=== PATIENT | female | born 1940 | race Caucasian/White ===

== ENCOUNTER 2019-05-26 08:05 | Day surgery (SDC) | payer MEDICARE, OTHER ==
[~2019-05-26] VITALS: Ht 177.8 cm; Wt 84.3 kg
[~2019-05-26 08:05] MED LIST: ACYC400 PO; ACYC800 PO; ALBU90OI INH; ALPR.5 PO; ALPR1 PO; ASCO500 PO; ASPI325 PO; ATOR10 PO; Acyclovir800 MG PO; Aspir-Trin325 MG PO; BUSP5 PO; CHOL10002 PO; CVS DISPOSABLE399 ML PR; Cleocin HCl300 MG PO; DIPH50; DULO30; DULO60 PO; ESTR2 PO; ESTRADIOL PO; FERR325 PO; GABA300; Gas Relief80 MG PO; HYDACE10B PO; Laxative5 M1 PO; MIRT15; MORP30ER PO; MORP60ER PO; Milk Of Ma400 MG/5 M; NAPR500 PO; Norco 10-325 T1 EACH PO; OMEP20ER PO; OXECTA5 MG; OXYC30ER PO; Oxycontin20 MG PO; PARO20 PO; POLY17UD PO; PRAM.125 PO; PROAIR RESPICL90 MCG INH; Prilosec Otc20 MG PO; RANI150; RANI150 PO; STOOL SOFTENER; STOOL SOFTENER100 MG PO; TRAZ50 PO; VITAMIN D32000 UNI1 PO; Vitamin D400 UNI1 PO; XANAX PO; [UNRECOGNIZED DRUG - OTHER]; [UNRECOGNIZED DRUG - OTHER] PO
--- NOTE | 2019-05-26 09:33 | NUR ---
05/26/19 0933 Patsy Brunson 3 IV ATTEMPTS BY [facility], 1ST IN R HAND INFILTRATED WHEN PT FLENCHED, 2ND IN R FA INFILTRATED WHEN PT FLENCHED, 3RD IV ATTEMPT IN R AC WAS SUCCESSFUL
== END 2019-05-26 11:25 | disposition home or self-care (01) ==
LOC: ORSCSDS 08:05
PROVIDERS: Surgery
PROC: 0DBL8ZX Excision of Transverse Colon, Via Natural or Artificial Opening Endoscopic, Diagnostic (ICD-10-PCS; principal; 2019-05-26 09:45)
DX: Z12.11 Encounter for screening for malignant neoplasm of colon (principal); D12.3 Benign neoplasm of transverse colon; K21.9 Gastro-esophageal reflux disease without esophagitis; F41.8 Other specified anxiety disorders; F32.9 Major depressive disorder, single episode, unspecified; E78.5 Hyperlipidemia, unspecified; J44.9 Chronic obstructive pulmonary disease, unspecified; Z87.891 Personal history of nicotine dependence; Z79.82 Long term (current) use of aspirin; Z79.899 Other long term (current) drug therapy
CPT/HCPCS: 88305; J2704; J7120

== ENCOUNTER 2020-12-11 14:56 | Emergency (ER) | payer MEDICARE, OTHER ==
[~2020-12-11] VITALS: Ht 177.8 cm; Wt 90.7 kg
[~2020-12-11 14:56] MED LIST changes: -ATOR10 PO; -Norco 10-325 T1 EACH PO; -Prilosec Otc20 MG PO
[2020-12-11 15:39] LABS: Hematocrit 37.3 % (33.0-51.0); Hemoglobin 11.9 g/dL (11.5-16.0); Mean Corpuscular HGB 30.7 pg (26.0-34.0); Mean Corpuscular HGB Conc 31.9 g/dL (31.5-36.5); Mean Corpuscular Volume 96 fL (80-100); Mean Platelet Volume 8.6 fL (9.1-12.4); Platelet Count 162 K/mm3 (150-400); RDW Coefficient Variation 13.8 % (11.7-14.2); Red Blood Cell Count 3.87 M/mm3 (3.80-5.20); White Blood Cell Count 23.89 K/mm3 (4.00-11.30)
[2020-12-11 16:01] LABS: BASOPHILS ABSOLUTE MAN 0.23 K/mm3 (0.00-0.23); BASOPHILS PERCENT MAN 1 % (0-2); EOSINOPHILS ABSOLUTE MAN 0.23 K/mm3 (0.00-0.68); EOSINOPHILS PERCENT MAN 1 % (0-6); LYMPHOCYTES ABSOLUTE MAN 18.15 K/mm3 (0.84-5.20); LYMPHOCYTES PERCENT MAN 76 % (21-46); MONOCYTES ABSOLUTE MAN 1.43 K/mm3 (0.16-1.47); MONOCYTES PERCENT MAN 6 % (4-13); NEUTROPHILS ABSOLUTE MAN 3.82 K/mm3 (1.96-9.15); SEG NEUTROPHILS PERCENT MAN 16 % (41-73); TOTAL CELLS COUNTED 100
[2020-12-11 16:08] LABS: Acetaminophen, Random 20.2 ug/mL (10.0-30.0); Ethanol (Alcohol), Blood, Med <3 mg/dL; Salicylate <1.7 mg/dL (2.8-20.0); Troponin I <0.015 ng/mL (0.000-0.040)
[2020-12-11 16:09] LABS: Alanine Aminotransfer (ALT/SGP 26 U/L (12-78); Albumin, Blood 3.8 g/dL (3.4-5.0); Albumin/Globulin Ratio 1.2 (0.8-1.8); Alk Phos 99 U/L (50-136); Anion Gap 4 mmol/L (6-16); Aspartate Aminotrans (AST/SGOT 18 U/L (12-37); Bilirubin, Total 0.4 mg/dL (0.1-1.0); Blood Urea Nitrogen 15 mg/dL (8-24); Bun/Creatinine Ratio 13.2 (12.0-20.0); CO2, Blood 28 mmol/L (21-32); Chloride, Blood 106 mmol/L (98-108); Creatinine, Blood 1.14 mg/dL (0.40-1.00); Globulin, Blood 3.3 g/dL (2.2-4.0); Glomerular Filtration Rate 49 (60-); Glucose, Blood 112 mg/dL (70-99); Potassium, Blood 4.9 mmol/L (3.5-5.5); Sodium, Blood 138 mmol/L (136-145); Total Protein, Blood 7.1 g/dL (6.4-8.2)
[2020-12-11 16:54] LABS: Source, Urine Voided
[2020-12-11 16:57] LABS: Appearance, Urine Clear (Clear); Bilirubin, Urine Neg (Neg); Blood, Urine 1+ (Neg); Color, Urine Yellow (P-Yellow); Glucose Qualitative, Urine Neg (Neg); Ketones, Urine 1+ (Neg); Leukocyte Esterase, Urine 3+ (Neg); Nitrite, Urine Pos (Neg); Protein, Urine 1+ (Neg); Specific Gravity, Urine 1.025 (1.003-1.022); Urobilinogen, Urine NORM (Normal)
[2020-12-11 17:14] LABS: U Amphetamine Screen Not Detected; U Barbituate Screen Not Detected; U Benzodiazapine Screen DETECTED; U Buprenorphine Screen Not Detected; U Cannabinoids Screen Not Detected; U Cocaine Screen Not Detected; U Methadone Screen Not Detected; U Methamphetamine Screen Not Detected; U Opiates Screen DETECTED; U Oxycodone Screen DETECTED; U Phencyclidine Screen Not Detected; U Propoxyphene Screen Not Detected
[2020-12-11 17:19] LABS: White Blood Cells, Urine 25-50 /hpf (0-5)
[2020-12-11 17:20] LABS: Bacteria Many /hpf; Red Blood Cells, Urine 0-2 /hpf (0-2); Squamous Epithelial Cells Few /hpf (Few)
[2020-12-11] MEDS ORDERED: Ventolin/Prove6.7 GM INH (17:32)
[2020-12-11] MEDS ORDERED: Prilosec Otc20 MG PO (17:33)
[2020-12-11] MEDS ORDERED: ATOR10 PO (17:33)
[2020-12-11] MEDS ORDERED: Norco 10-325 T1 EACH PO (17:33)
[2020-12-11] MEDS ORDERED: ALPR1 PO (18:56)
== END 2020-12-11 22:58 | disposition short-term general hospital (02) ==
LOC: ER 14:56
PROVIDERS: Emergency Medicine
DX: G93.89 Other specified disorders of brain (principal); N39.0 Urinary tract infection, site not specified; Z79.899 Other long term (current) drug therapy
CPT/HCPCS: 36415; 70450; 71045; 72125; 80053; 81001; 83605; 83690; 84484; 85025; 87040; 93005; 93010; 96365; 99285-25; G0480; J0456; J0696; J7030; J7050

== ENCOUNTER → 2023-01-20 | Outpatient (CLI) | payer MEDICARE, OTHER ==
[~2023-01-20] MED LIST changes: +ATOR10 PO; +HYDR1TAB94 PO; +IBUP600 PO; +MIRALAX17 GM PO; +Norco 10-325 T1 EACH PO; +Prilosec Otc20 MG PO; +Ventolin/Prove6.7 GM INH
== END | disposition home or self-care (01) ==
LOC: LAB SHORT 14:50 → LAB 14:50
DX: L08.9 Local infection of the skin and subcutaneous tissue, unspecified (principal)
CPT/HCPCS: 87070; 87077; 87186; 87205

== ENCOUNTER 2023-01-22 05:39 | Emergency (ER) | payer MEDICARE, OTHER ==
[~2023-01-22] VITALS: Ht 167.6 cm; Wt 81.7 kg
[~2023-01-22 05:39] MED LIST changes: -HYDR1TAB94 PO; -IBUP600 PO; -MIRALAX17 GM PO
[2023-01-22 06:50] LABS: BASOPHILS ABSOLUTE AUTO 0.07 K/mm3 (0.00-0.23); BASOPHILS PERCENT AUTO 1 % (0-2); EOSINOPHILS ABSOLUTE AUTO 0.21 K/mm3 (0.00-0.68); EOSINOPHILS PERCENT AUTO 3 % (0-6); Hemoglobin 10.9 g/dL (11.5-16.0); IMMATURE GRAN ABSOLUTE AUTO 0.03 K/mm3 (0.00-0.10); IMMATURE GRAN PERCENT AUTO 0 % (0-1); LYMPHOCYTES ABSOLUTE AUTO 3.63 K/mm3 (0.84-5.20); LYMPHOCYTES PERCENT AUTO 43 % (21-46); MONOCYTES ABSOLUTE AUTO 0.47 K/mm3 (0.16-1.47); MONOCYTES PERCENT AUTO 6 % (4-13); Mean Corpuscular HGB 30.4 pg (26.0-34.0); Mean Corpuscular Volume 92 fL (80-100); Mean Platelet Volume 9.7 fL (9.1-12.4); NEUTROPHILS ABSOLUTE AUTO 4.08 K/mm3 (1.96-9.15); NEUTROPHILS PERCENT AUTO 48 % (41-73); Platelet Count 223 K/mm3 (150-400); RDW Coefficient Variation 13.6 % (11.7-14.2); Red Blood Cell Count 3.59 M/mm3 (3.80-5.20); White Blood Cell Count 8.49 K/mm3 (4.00-11.30)
[2023-01-22 07:06] LABS: Albumin, Blood 3.4 g/dL (3.4-5.0); Albumin/Globulin Ratio 1.2 (0.8-1.8); Bilirubin, Total 0.3 mg/dL (0.1-1.0); Bun/Creatinine Ratio 26.7 (12.0-20.0); Calcium, Blood 9.3 mg/dL (8.5-10.1); Creatinine, Blood 0.98 mg/dL (0.40-1.00); Globulin, Blood 2.9 g/dL (2.2-4.0); Potassium, Blood 4.7 mmol/L (3.5-5.5); Total Protein, Blood 6.3 g/dL (6.4-8.2)
[2023-01-22 07:31] LABS: Source, Urine Clean Catch
[2023-01-22 07:42] LABS: Appearance, Urine Clear (Clear); Bilirubin, Urine Neg (Neg); Blood, Urine 1+ (Neg); Color, Urine Yellow (P-Yellow); Glucose Qualitative, Urine Neg (Neg); Ketones, Urine Neg (Neg); Leukocyte Esterase, Urine 2+ (Neg); Nitrite, Urine Neg (Neg); Protein, Urine Neg (Neg); Specific Gravity, Urine 1.015 (1.003-1.022); Urobilinogen, Urine NORM (Normal)
[2023-01-22 07:57] LABS: Bacteria Rare /hpf; Red Blood Cells, Urine 0-2 /hpf (0-2); Squamous Epithelial Cells Few /hpf (Few)
[2023-01-22] MEDS ORDERED: MIRALAX17 GM PO (08:51)
[2023-01-22] MEDS ORDERED: IBUP600 PO (08:51)
[2023-01-22] MEDS ORDERED: HYDR1TAB94 PO (08:51)
[2023-01-22 09:00] VITALS: BP 146/86
== END 2023-01-22 09:28 | disposition home or self-care (01) ==
LOC: ER 05:39
PROVIDERS: Emergency Medicine
DX: R10.31 Right lower quadrant pain (principal); K59.00 Constipation, unspecified; E78.5 Hyperlipidemia, unspecified; J44.9 Chronic obstructive pulmonary disease, unspecified; K21.9 Gastro-esophageal reflux disease without esophagitis; M19.90 Unspecified osteoarthritis, unspecified site; Z87.891 Personal history of nicotine dependence
CPT/HCPCS: 36415; 74177; 80053; 81001; 85025; 96374-59; 96375; 96376; 99284-25; J1200; J1885; J2270; Q9967

== ENCOUNTER 2023-01-30 00:42 | Day surgery (SDC) | payer MEDICARE, OTHER ==
[~2023-01-30 00:42] MED LIST changes: +HYDR1TAB94 PO; +IBUP600 PO; +MIRALAX17 GM PO
== END 2023-01-30 23:00 | disposition home or self-care (01) ==
LOC: WOUND 00:42
DX: L97.522 Non-pressure chronic ulcer of other part of left foot with fat layer exposed (principal); L97.512 Non-pressure chronic ulcer of other part of right foot with fat layer exposed; I87.311 Chronic venous hypertension (idiopathic) with ulcer of right lower extremity; I87.302 Chronic venous hypertension (idiopathic) without complications of left lower extremity; I87.2 Venous insufficiency (chronic) (peripheral); I10 Essential (primary) hypertension; R60.1 Generalized edema; G60.3 Idiopathic progressive neuropathy; Z88.8 Allergy status to other drugs, medicaments and biological substances; Z87.891 Personal history of nicotine dependence; J44.9 Chronic obstructive pulmonary disease, unspecified
CPT/HCPCS: A9270; G0463

== ENCOUNTER 2023-02-09 08:00 | Day surgery (SDC) | payer MEDICARE, OTHER | END 2023-02-09 23:59 | disposition home or self-care (01) | LOC: WOUND 08:00 | DX: I87.313 Chronic venous hypertension (idiopathic) with ulcer of bilateral lower extremity (principal); L97.512 Non-pressure chronic ulcer of other part of right foot with fat layer exposed; L97.522 Non-pressure chronic ulcer of other part of left foot with fat layer exposed; C95.90 Leukemia, unspecified not having achieved remission; I87.2 Venous insufficiency (chronic) (peripheral); I10 Essential (primary) hypertension; G60.3 Idiopathic progressive neuropathy | CPT/HCPCS: A9270; G0463 ==

== ENCOUNTER 2023-02-16 02:07 | Day surgery (SDC) | payer MEDICARE, OTHER | END 2023-02-16 22:52 | disposition home or self-care (01) | LOC: WOUND 02:07 | DX: I87.313 Chronic venous hypertension (idiopathic) with ulcer of bilateral lower extremity (principal); L97.522 Non-pressure chronic ulcer of other part of left foot with fat layer exposed; L97.512 Non-pressure chronic ulcer of other part of right foot with fat layer exposed; I87.2 Venous insufficiency (chronic) (peripheral); R60.1 Generalized edema; G60.3 Idiopathic progressive neuropathy | CPT/HCPCS: A9270; G0463 ==

== ENCOUNTER 2023-02-24 02:37 | Day surgery (SDC) | payer MEDICARE, OTHER | END 2023-02-24 23:06 | disposition home or self-care (01) | LOC: WOUND 02:37 | DX: I87.313 Chronic venous hypertension (idiopathic) with ulcer of bilateral lower extremity (principal); L97.522 Non-pressure chronic ulcer of other part of left foot with fat layer exposed; L97.512 Non-pressure chronic ulcer of other part of right foot with fat layer exposed; I87.2 Venous insufficiency (chronic) (peripheral); I10 Essential (primary) hypertension; R60.1 Generalized edema; G60.3 Idiopathic progressive neuropathy | CPT/HCPCS: G0463 ==

== ENCOUNTER 2023-03-04 00:45 | Day surgery (SDC) | payer MEDICARE, OTHER | END 2023-03-04 22:56 | disposition home or self-care (01) | LOC: WOUND 00:45 | DX: I87.313 Chronic venous hypertension (idiopathic) with ulcer of bilateral lower extremity (principal); L97.522 Non-pressure chronic ulcer of other part of left foot with fat layer exposed; L97.512 Non-pressure chronic ulcer of other part of right foot with fat layer exposed; I87.2 Venous insufficiency (chronic) (peripheral); I10 Essential (primary) hypertension; R60.1 Generalized edema; G60.3 Idiopathic progressive neuropathy | CPT/HCPCS: A9270 ==

== ENCOUNTER 2023-03-13 03:41 | Day surgery (SDC) | payer MEDICARE, OTHER | END 2023-03-16 23:18 | disposition home or self-care (01) | LOC: WOUND 03:41 | DX: I87.311 Chronic venous hypertension (idiopathic) with ulcer of right lower extremity (principal); L97.522 Non-pressure chronic ulcer of other part of left foot with fat layer exposed; L97.512 Non-pressure chronic ulcer of other part of right foot with fat layer exposed; I87.302 Chronic venous hypertension (idiopathic) without complications of left lower extremity; I87.2 Venous insufficiency (chronic) (peripheral); I10 Essential (primary) hypertension; R60.1 Generalized edema; G60.3 Idiopathic progressive neuropathy | CPT/HCPCS: A9270; G0463 ==

== ENCOUNTER → 2023-03-20 | Day surgery (SDC) | payer MEDICARE, OTHER | LOC: WOUND 03:26 | DX: I87.311 Chronic venous hypertension (idiopathic) with ulcer of right lower extremity (principal); I87.302 Chronic venous hypertension (idiopathic) without complications of left lower extremity; L97.522 Non-pressure chronic ulcer of other part of left foot with fat layer exposed; L97.512 Non-pressure chronic ulcer of other part of right foot with fat layer exposed; I87.2 Venous insufficiency (chronic) (peripheral); I10 Essential (primary) hypertension; R60.1 Generalized edema; G60.3 Idiopathic progressive neuropathy | CPT/HCPCS: A9270 ==

== ENCOUNTER 2023-04-17 01:02 | Day surgery (SDC) | payer MEDICARE, OTHER | END 2023-04-17 22:42 | disposition home or self-care (01) | LOC: WOUND 01:02 | DX: I87.313 Chronic venous hypertension (idiopathic) with ulcer of bilateral lower extremity (principal); I87.302 Chronic venous hypertension (idiopathic) without complications of left lower extremity; L97.529 Non-pressure chronic ulcer of other part of left foot with unspecified severity; I87.311 Chronic venous hypertension (idiopathic) with ulcer of right lower extremity; L97.512 Non-pressure chronic ulcer of other part of right foot with fat layer exposed; L97.522 Non-pressure chronic ulcer of other part of left foot with fat layer exposed; I87.2 Venous insufficiency (chronic) (peripheral); I10 Essential (primary) hypertension; R60.1 Generalized edema; G60.3 Idiopathic progressive neuropathy | CPT/HCPCS: A9270; G0463 ==

== ENCOUNTER → 2023-06-25 | Outpatient (CLI) | payer MEDICARE, OTHER | LOC: LAB 15:00 → LAB SHORT 15:00 | DX: R30.0 Dysuria (principal) | CPT/HCPCS: 87077; 87086; 87186 ==

== ENCOUNTER → 2023-09-16 | Outpatient (CLI) | payer MEDICARE, OTHER | LOC: LAB 12:00 → LAB SHORT 12:00 | DX: R30.0 Dysuria (principal) | CPT/HCPCS: 87086 ==